=== PATIENT | male | born 1970 | race Asian ===

== ENCOUNTER 2018-06-27 22:52 | Inpatient (IN) | payer BC ==
[2018-06-27] MEDS ORDERED: Sodium Chloride 0.9% 1,000 ML IV ONE (23:22)
[2018-06-27] MEDS ORDERED: Morphine Sulfate 4 mg/mL 1mL Syr IVP STA (23:24)
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
[2018-06-27] MEDS ORDERED: Morphine Sulfate 4 mg/mL 1mL Syr ONE (23:33)
[2018-06-27 23:50] LABS: URINE SOURCE MIDSTREAM
[2018-06-27 23:54] LABS: % BASOPHILS 0.6 % (0.0-2.0); % EOSINOPHILS 1.3 % (0.0-5.0); % LYMPHOCYTES 39.7 % (20.0-50.0); % MONOCYTES 8.7 % (2.0-10.0); % NEUTROPHILS 49.7 % (40.0-80.0); EOSINOPHILE ABSOLUTE 0.1 Th/cmm (0.1-0.4); HEMATOCRIT 46.5 % (41.0-60); HEMOGLOBIN 15.4 gm/dL (12-16); LYMPHOCYTE ABSOLUTE 2.9 Th/cmm (1.5-3.0); MEAN CELL VOLUME 93.8 fl (80-99); MEAN CORPUSCULAR HGB CONC 33.1 pg (28.0-36.0); MEAN PLATELET VOLUME 8.7 fl; MONOCYTE ABSOLUTE 0.6 Th/cmm (0.3-1.0); NEUTROPHILE ABSOLUTE 3.7 Th/cmm (1.8-8.0); PLATELET COUNT 245 Th/cmm (150-400); RED BLOOD COUNT 4.95 Mil/cmm (4.30-5.70); RED CELL DISTRIBUTION WIDTH 12.3 % (11.5-20.0); WHITE BLOOD COUNT 7.3 Th/cmm (4.8-10.8)
[2018-06-27 23:56] LABS: URINE BILIRUBIN NEGATIVE (NEGATIVE); URINE BLOOD NEGATIVE (NEGATIVE); URINE GLUCOSE (UA) NEGATIVE (NEGATIVE); URINE KETONE NEGATIVE (NEGATIVE); URINE LEUKOCYTE ESTERASE NEGATIVE (NEGATIVE); URINE NITRATE NEGATIVE (NEGATIVE); URINE PH 5.5 (4.6 - 8.0); URINE PROTEIN NEGATIVE (NEGATIVE); URINE UROBILINOGEN 0.2 E.U./dL (0.2 - 1.0)
[2018-06-28] LABS: URINE CLARITY CLEAR (CLEAR); URINE COLOR YELLOW; URINE MICROSCOPIC INDICATED? NO
[2018-06-28 00:07] LABS: ANION GAP 11.4 (7.0-16.0); BUN - UREA NITROGEN 27 mg/dL (7-25); CALCIUM SERUM 9.9 mg/dL (8.6-10.3); CARBON DIOXIDE 26.6 mEq/L (21.0-31.0); CHLORIDE 101 mEq/L (98-107); CREATININE - SERUM 0.9 mg/dL (0.7-1.3); GFR AFRICAN-AMERICAN > 60.0 ml/min (>90); GFR NON AFRICAN-AMERICAN > 60.0 ml/min; GLUCOSE 125 mg/dL (70-105); LIPASE 30 U/L (11-82); MAGNESIUM 2.2 mg/dL (1.9-2.7); SODIUM SERUM 135 mEq/L (136-145)
[2018-06-28] MEDS ORDERED: Morphine Sulfate 4 mg/mL 1mL Syr IV PRN (02:29)
[2018-06-28 03:25] VITALS: BP 119/87
[2018-06-28] MEDS: D5-0.45NS w/20 mEq KCL 1,000 ML IV SCH ×2 (03:50→11:17)
[2018-06-28] MEDS ORDERED: Piperacillin Sodium/Tazobact 3.375 gm Vial IV ONE (04:27)
[2018-06-28] MEDS ORDERED: metroNIDAZOLE 500mg/NS 100mL 500 MG/100 ML BAG IV ONE (04:27)
[2018-06-28] MEDS: metroNIDAZOLE 500mg/NS 100mL 500 MG in Premix Fluid 1 BAG IV SCH ×2 (05:09→12:18)
--- NOTE | 2018-06-28 08:28 | Diagnostic Imaging Report ---
Exam: CT examination abdomen pelvis. HISTORY: Abdominal pain Appendicitis. Prior exam: None Total DLP equals 576 CTDI equals 10.9 Findings: Multiple contiguous thin section of the abdomen pelvis obtained from lower thorax to pubic symphysis without the administration of contrast material. No prior studies available comparison The study demonstrates a fatty infiltration liver parenchyma. The spleen is intact. The kidneys demonstrate no evidence of obstructive uropathy or nephrolithiasis. The pancreas normal. The gallbladder is normal. The appendix is intact. No free fluid is noted. The gallbladder is distended. There is evidence for mild nonspecific focal haziness of the fat of the anterior abdomen superior to umbilicus level possibly omental infarct. IMPRESSION: No evidence for appendicitis. Nonspecific focal hazy density in the anterior abdomen at the level of the umbilicus might represent omental infarct.
[2018-06-28 10:09] LABS: ALB/GLOB RATIO 1.9 (1.0-1.8); ALBUMIN 4.1 gm/dL (4.2-5.5); ALKALINE PHOSPHATASE 39 U/L (34-104); BILIRUBIN,TOTAL 1.1 mg/dL (0.3-1.0); BUN - UREA NITROGEN 17 mg/dL (7-25); CALCIUM SERUM 9.2 mg/dL (8.6-10.3); CARBON DIOXIDE 24.2 mEq/L (21.0-31.0); CHLORIDE 108 mEq/L (98-107); CREATININE - SERUM 0.9 mg/dL (0.7-1.3); GFR AFRICAN-AMERICAN > 60.0 ml/min (>90); GFR NON AFRICAN-AMERICAN > 60.0 ml/min; GLUCOSE 116 mg/dL (70-105); POTASSIUM SERUM 4.2 mEq/L (3.5-5.1); SGOT 33 U/L (13-39); SGPT/ALT 75 U/L (7-52); SODIUM SERUM 139 mEq/L (136-145); TOTAL PROTEIN,SERUM 6.3 gm/dL (6.0-8.3)
[2018-06-28 10:28] LABS: % BASOPHILS 0.7 % (0.0-2.0); % EOSINOPHILS 1.3 % (0.0-5.0); % LYMPHOCYTES 43.6 % (20.0-50.0); % MONOCYTES 7.7 % (2.0-10.0); % NEUTROPHILS 46.7 % (40.0-80.0); EOSINOPHILE ABSOLUTE 0.1 Th/cmm (0.1-0.4); HEMOGLOBIN 14.3 gm/dL (12-16); LYMPHOCYTE ABSOLUTE 2.4 Th/cmm (1.5-3.0); MEAN CELL VOLUME 91.9 fl (80-99); MEAN CORPUSCULAR HEMOGLOBIN 31.3 pg (26.0-30.0); MEAN PLATELET VOLUME 8.6 fl; MONOCYTE ABSOLUTE 0.4 Th/cmm (0.3-1.0); NEUTROPHILE ABSOLUTE 2.5 Th/cmm (1.8-8.0); PLATELET COUNT 215 Th/cmm (150-400); RED BLOOD COUNT 4.58 Mil/cmm (4.30-5.70); RED CELL DISTRIBUTION WIDTH 12.2 % (11.5-20.0); WHITE BLOOD COUNT 5.4 Th/cmm (4.8-10.8)
--- NOTE | 2018-06-28 13:33 | Diagnostic Imaging Report ---
Exam: CT examination abdomen pelvis. HISTORY: Mental infarct Prior exam: None Total DLP equals 699 CTDI equals 12.5 Findings: Multiple contiguous thin section of the abdomen pelvis obtained from lower thorax to pubic symphysis without the administration of intravenous contrast material, oral contrast was utilized. The exam was compared to the prior exam same day earlier. The study unchanged appearance since earlier examination same day. Again noted area of hazy density in the anterior abdomen at the level umbilicus most likely represent mild inflammatory changes of a omentum. Normal progression of oral contrast material is noted throughout the small bowel into the colon. IMPRESSION: Unchanged appearance of the previously described edema of the small portion of the omentum at the level of umbilicus.
[2018-06-28] MEDS ORDERED: Diatrizoate Meglumine/Diatri 30 mL Sol PO ONE (13:53)
--- NOTE | 2018-06-28 17:48 | History & Physical ---
ADMIT DATE: CHIEF COMPLAINT: Acute abdominal pain around the umbilical area for 1 day duration. HISTORY OF PRESENT ILLNESS: The patient is a 48-year-old male who presented to the Emergency Room complaining of severe pain around the umbilical area for 1 day duration, evaluated by the ER physician. Initial workup was significant for possible herniation over small amount omentum in the umbilical hernia. The patient admitted to the hospital. Surgery consultation obtained. The patient denies any fever or chills, any nausea or vomiting. The patient started on IV fluid, pain medication. PAST MEDICAL HISTORY: Negative. PAST SURGICAL HISTORY: Negative. ALLERGIES: None. MEDICATIONS: None. SOCIAL HISTORY: No smoking or alcohol. No drug. FAMILY HISTORY: Noncontributory. REVIEW OF SYSTEMS: RENAL SYSTEM: No history of chronic renal disorder. CARDIOVASCULAR SYSTEM: No coronary artery disease. ENDOCRINE SYSTEM: No diabetes or thyroid problem. GASTROINTESTINAL SYSTEM: No upper or lower gastrointestinal bleed. NEUROLOGICAL SYSTEM: No seizure disorder. MUSCULOSKELETAL SYSTEM: No muscular dystrophy. HEMATOLOGIC: No bleeding tendencies. GENITOURINARY SYSTEM: No dysuria or hematuria. PHYSICAL EXAMINATION: GENERAL: He is awake, alert, oriented. VITAL SIGNS: Temperature 98, heart rate 80, blood pressure 120/80. HEENT: Normocephalic. Pupils reactive to light and accommodation. Sclerae clear. NECK: Supple. Negative for lymphadenopathy, JVD or bruit. CHEST: Entry of air bilaterally normal. No rhonchi or wheezing. HEART: S1, S2 normal. No murmur or gallop rhythm. ABDOMEN: Soft, mild tenderness at the umbilical area. Bowel sounds positive. EXTREMITIES: No edema. NEUROLOGIC: Awake, alert, oriented. No focal motor deficits. Cranial nerves 2-12 are intact. LABORATORY DATA: White blood 5.4, hemoglobin 14.3, hematocrit 42, platelet is 215. Sodium 139, potassium 4.2, BUN 17, creatinine 0.9. ASSESSMENT: Small umbilical hernia with herniation of the small amount of omentum. PLAN: The patient admitted to the hospital under Dr. Jain's service. The patient was started on IV fluid and clear liquid diet. Dr. Perea general surgeon consulted on the case. JOB# [id number]
--- NOTE | 2018-06-28 17:57 | Consultation ---
DATE OF CONSULTATION: SURGICAL CONSULT HISTORY OF PRESENT ILLNESS: This patient is a 48-year-old male who presented to the Emergency Room, found to have severe abdominal pain, mostly supraumbilical area to mid epigastric. This patient had a CT scan, which was unremarkable for any perforations free air. He does have what appears to be a mild amount of omental infarct. CT scan, appendix is normal. There are no other studies present except a mild omental infarct. Laboratory studies showed the patient to have a WBC count of 7.3, H and H is 15.4 and 46.5. Chemistry: Sodium is essentially normal. Total bilirubin is slightly elevated at 1.1. His albumin was also high at 1.9, glucose slightly elevated as well as 125-160. PHYSICAL EXAMINATION: VITAL SIGNS: He is afebrile. Temperature is 97.4, blood pressure is 119/89. His pulse has been right around 68 with a pulse ox of 95. He is not guarding. He has minimal point tenderness supraumbilical area, slightly distended, but no nausea, no vomiting. The patient was admitted and given pain meds and has not asked for pain meds and over 4-6 hours at this time. ASSESSMENT: Omental infarct abdominal pain. RECOMMENDATIONS: Repeat CT scan with oral contrast and/or possible MRI. I have also discussed surgical options with the patient including a diagnostic laparoscopy and a possibility of open small laparotomy pulling the omentum out as well as laparoscopy. I had a discussion with the patient's brother, who is also a general surgeon in [place] with his present on speaker phone. We discussed all surgical options at this time. The plan is to recommend those things, continue antibiotics. However, upon careful and long discussions with the patient and the family, they want to do the more conservative management. He is not septic. He is not febrile. He has a normal white count. At this point, we will most likely give him some food and send him home and if the patient has worsening symptoms, he will return for evaluation. The patient understands this and wishes to proceed in this manner. He does not want surgery at this time. The family does not want surgery and he may in fact has also not wanted the CT scan. At this point, we will continue to proceed with these plans. If the patient decides to continue with this, we will then proceed with other options as needed or he may in fact be discharged home on conservative care. [facility]# [id number]
== END 2018-06-28 18:30 | disposition home or self-care (01) | DRG 395 ==
LOC: ER 22:52 → MSI 06-28 02:23
PROVIDERS: ADMIT Family Medicine; ATTEND Family Medicine
DX: K55.069 Acute infarction of intestine, part and extent unspecified (principal); K44.9 Diaphragmatic hernia without obstruction or gangrene; K46.9 Unspecified abdominal hernia without obstruction or gangrene; Z95.1 Presence of aortocoronary bypass graft
CPT/HCPCS: 36415-UA; 80048-TC; 80053-TC; 81003-TC; 83605; 83690-TC; 83735-TC; 85025-TC; 90784; 90799; 96374; 96375; J2405; J2543; J7030